=== PATIENT | male | born 1945 | race Caucasian/White ===

== ENCOUNTER 2022-07-19 04:19 | Inpatient (IN) | payer OTHER ==
[2022-07-19] MEDS ORDERED: Pantoprazole 40 MG VIAL ONE (05:16)
[2022-07-19 05:41] LABS: #Basophils 0.1 10x3/uL (0.0-0.2); #Eosinphils 0.2 10x3/uL (0.0-0.5); #Monocytes 1.1 10x3/uL (0.0-1.1); #Neutrophils 9.4 10x3/uL (1.5-8.4); %Eosinophils 1.6 % (0.0-6.0); %Lymphocytes 9.3 % (18.0-47.0); %Neutrophils 78.5 % (40.0-75.0); Hemoglobin 10.7 g/dL (13.5-17.5); Mean Corpuscular HGB CONC 31.8 g/dL (32.0-36.0); Mean Corpuscular Hemoglobin 27.4 pg (27.0-33.0); Mean Corpuscular Volume 85.9 fl (81.2-95.1); Mean Platelet Volume 9.6 fl (7.4-10.4); Platelet Count 419 10x3/uL (150-450); RBC Distribution Width 14.7 % (11.5-14.5); Red Blood Cell (RBC) Count 3.91 10x6/uL (4.32-5.72)
[2022-07-19 05:54] LABS: ALT (SGPT) 19 U/L (8-55); AST (SGOT) 15 U/L (5-34); Albumin 3.8 g/dL (3.4-4.8); Alkaline Phosphatase 142 U/L (40-110); Anion Gap 14 mmol/L (10-20); BUN (Urea Nitrogen) 16 mg/dL (8.4-25.7); Bilirubin, Total 0.4 mg/dL (0.2-1.2); Calc. Creatinine Clearance 0 mL/min (70-130); Calcium 8.7 mg/dL (7.8-10.44); Carbon Dioxide 23 mmol/L (23-31); Chloride 106 mmol/L (98-107); Estimated GFR 81; Globulin 3.2 g/dL (2.4-3.5); Glucose 94 mg/dL (83-110); Potassium 3.8 mmol/L (3.5-5.1); Sodium 139 mmol/L (136-145)
[2022-07-19 05:56] LABS: INR-International Normal Ratio 1.3; PTT 38.7 sec (22.0-33.0); Prothrombin Time 14.2 sec (9.5-12.1)
[2022-07-19 11:46] LABS: SARS-CoV-2 NAA Rapid Test Not Detected (NotDetected)
[2022-07-19 20:28] LABS: Hemoglobin 11.5 g/dL (13.5-17.5)
[2022-07-19] MEDS ORDERED: Meclizine HCl 25 MG TAB ONE (21:57)
[2022-07-19] MEDS ORDERED: Lisinopril 10 MG TAB ONE (21:57)
[2022-07-19] MEDS ORDERED: Amlodipine 5 MG TAB ONE (21:58)
[2022-07-19] MEDS ORDERED: Atorvastatin Calcium 40 MG TAB ONE (22:00)
[2022-07-19] MEDS ORDERED: Methimazole 5 MG TAB PO SCH (22:15)
[2022-07-19] MEDS ORDERED: Ezetimibe 10 MG TAB PO SCH (22:15)
[2022-07-19] MEDS ORDERED: Ferrous Sulfate 325 MG TAB PO SCH (22:15)
[2022-07-20] MEDS ORDERED: Meclizine HCl 25 MG TAB PO PRN (08:13)
[2022-07-20] MEDS ORDERED: Nitroglycerin 0.4 MG TAB (25 Tab Bottle) SL PRN (08:13)
[2022-07-20] MEDS ORDERED: Aspirin Chewable 81 MG TAB ONE (09:15)
[2022-07-20] MEDS ORDERED: Pantoprazole 40 MG VIAL ONE (09:15)
[2022-07-20] MEDS ORDERED: Clopidogrel Bisulfate 75 MG TAB ONE (09:15)
[2022-07-20] MEDS ORDERED: Iopamidol 300 61% 100 ML VIAL FS ONE (09:28)
[2022-07-20] MEDS: Ezetimibe 10 MG TAB PO SCH (09:40)
[2022-07-20] MEDS: Methimazole 5 MG TAB PO SCH (09:40)
[2022-07-20] MEDS: Clopidogrel Bisulfate 75 MG TAB PO SCH (09:40)
[2022-07-20] MEDS: Aspirin 81 mg Enteric Coated Tablet PO SCH (09:40)
[2022-07-20] MEDS: Pantoprazole 40 MG VIAL IVP SCH ×2 (09:41→21:18)
[2022-07-20 09:43] LABS: #Basophils 0.1 10x3/uL (0.0-0.2); #Eosinphils 0.3 10x3/uL (0.0-0.5); #Monocytes 1.2 10x3/uL (0.0-1.1); #Neutrophils 9.5 10x3/uL (1.5-8.4); %Eosinophils 2.3 % (0.0-6.0); %Lymphocytes 7.4 % (18.0-47.0); %Monocytes 9.9 % (0.0-10.0); %Neutrophils 78.9 % (40.0-75.0); Hemoglobin 10.6 g/dL (13.5-17.5); Mean Corpuscular HGB CONC 30.8 g/dL (32.0-36.0); Mean Corpuscular Hemoglobin 27.1 pg (27.0-33.0); Mean Platelet Volume 9.6 fl (7.4-10.4); Platelet Count 486 10x3/uL (150-450); RBC Distribution Width 14.9 % (11.5-14.5); Red Blood Cell (RBC) Count 3.91 10x6/uL (4.32-5.72); White Blood Cell (WBC) Count 12.1 10x3/uL (3.5-10.5)
[2022-07-20 09:50] LABS: INR-International Normal Ratio 1.3; Prothrombin Time 13.5 sec (9.5-12.1)
[2022-07-20 09:51] LABS: Anion Gap 13 mmol/L (10-20); BUN (Urea Nitrogen) 13 mg/dL (8.4-25.7); Calc. Creatinine Clearance 0 mL/min (70-130); Calcium 8.5 mg/dL (7.8-10.44); Carbon Dioxide 23 mmol/L (23-31); Chloride 107 mmol/L (98-107); Estimated GFR 86; Glucose 101 mg/dL (83-110); Potassium 4.1 mmol/L (3.5-5.1); Sodium 139 mmol/L (136-145)
[2022-07-20] MEDS ORDERED: GoLYTELY 4,000 ml Bottle PO SCH (10:00)
[2022-07-20 10:10] VITALS: BMI 20.5
[2022-07-20] MEDS: Sodium Chloride 0.9% 1,000 ML IV SCH (11:52)
[2022-07-20] MEDS ORDERED: Ipratropium Bromide 2.5 ml Neb NEB PRN (13:00)
[2022-07-20] MEDS: Atorvastatin Calcium 40 MG TAB PO SCH (21:18)
[2022-07-21 04:57] LABS: Anion Gap 15 mmol/L (10-20); BUN (Urea Nitrogen) 8 mg/dL (8.4-25.7); Calc. Creatinine Clearance 74 mL/min (70-130); Calcium 8.5 mg/dL (7.8-10.44); Carbon Dioxide 21 mmol/L (23-31); Chloride 109 mmol/L (98-107); Estimated GFR 91; Glucose 99 mg/dL (83-110); Sodium 141 mmol/L (136-145)
[2022-07-21 05:01] LABS: INR-International Normal Ratio 1.3; Prothrombin Time 13.4 sec (9.5-12.1)
[2022-07-21 05:21] LABS: #Basophils 0.1 10x3/uL (0.0-0.2); #Eosinphils 0.4 10x3/uL (0.0-0.5); #Monocytes 1.3 10x3/uL (0.0-1.1); #Neutrophils 12.2 10x3/uL (1.5-8.4); %Basophils 0.9 % (0.0-2.0); %Eosinophils 2.5 % (0.0-6.0); %Lymphocytes 7.7 % (18.0-47.0); %Monocytes 8.7 % (0.0-10.0); %Neutrophils 79.8 % (40.0-75.0); Hemoglobin 10.4 g/dL (13.5-17.5); Mean Corpuscular HGB CONC 31.2 g/dL (32.0-36.0); Mean Corpuscular Hemoglobin 27.4 pg (27.0-33.0); Mean Corpuscular Volume 87.6 fl (81.2-95.1); Mean Platelet Volume 9.9 fl (7.4-10.4); Platelet Count 449 10x3/uL (150-450); RBC Distribution Width 14.9 % (11.5-14.5); White Blood Cell (WBC) Count 15.3 10x3/uL (3.5-10.5)
[2022-07-21] MEDS: Sodium Chloride 0.9% 1,000 ML IV SCH (05:40)
[2022-07-21] MEDS: Metoprolol Tartrate 25 MG TAB PO SCH ×2 (09:54→21:43)
[2022-07-21] MEDS: Pantoprazole 40 MG VIAL IVP SCH ×2 (09:54→21:44)
[2022-07-21] MEDS: Methimazole 5 MG TAB PO SCH (09:54)
[2022-07-21] MEDS: Ezetimibe 10 MG TAB PO SCH (09:54)
[2022-07-21] MEDS: Aspirin 81 mg Enteric Coated Tablet PO SCH (09:54)
[2022-07-21] MEDS: Clopidogrel Bisulfate 75 MG TAB PO SCH (09:55)
[2022-07-21] MEDS ORDERED: GoLYTELY 4,000 ml Bottle PO SCH (13:00)
[2022-07-21] MEDS: Atorvastatin Calcium 40 MG TAB PO SCH (21:43)
[2022-07-22 05:19] LABS: Anion Gap 18 mmol/L (10-20); BUN (Urea Nitrogen) 6 mg/dL (8.4-25.7); Calc. Creatinine Clearance 67 mL/min (70-130); Calcium 9.1 mg/dL (7.8-10.44); Carbon Dioxide 24 mmol/L (23-31); Chloride 106 mmol/L (98-107); Estimated GFR 85; Glucose 92 mg/dL (83-110); Sodium 143 mmol/L (136-145)
[2022-07-22 05:24] LABS: #Basophils 0.1 10x3/uL (0.0-0.2); #Eosinphils 0.4 10x3/uL (0.0-0.5); #Monocytes 1.1 10x3/uL (0.0-1.1); #Neutrophils 9.1 10x3/uL (1.5-8.4); %Eosinophils 3.6 % (0.0-6.0); %Lymphocytes 9.3 % (18.0-47.0); %Monocytes 9.2 % (0.0-10.0); %Neutrophils 76.5 % (40.0-75.0); Hemoglobin 11.2 g/dL (13.5-17.5); Mean Corpuscular Hemoglobin 27.1 pg (27.0-33.0); Mean Corpuscular Volume 87.2 fl (81.2-95.1); Mean Platelet Volume 9.6 fl (7.4-10.4); Platelet Count 504 10x3/uL (150-450); RBC Distribution Width 14.8 % (11.5-14.5); Red Blood Cell (RBC) Count 4.14 10x6/uL (4.32-5.72); White Blood Cell (WBC) Count 11.8 10x3/uL (3.5-10.5)
[2022-07-22] MEDS: Ezetimibe 10 MG TAB PO SCH (06:12)
[2022-07-22] MEDS: Sodium Chloride 0.9% 1,000 ML IV SCH ×2 (06:12→20:57)
[2022-07-22] MEDS: Metoprolol Tartrate 25 MG TAB PO SCH ×2 (06:12→20:57)
[2022-07-22] MEDS: Clopidogrel Bisulfate 75 MG TAB PO SCH (09:13)
[2022-07-22] MEDS: Aspirin 81 mg Enteric Coated Tablet PO SCH (09:13)
[2022-07-22] MEDS: Pantoprazole 40 MG VIAL IVP SCH (09:21)
[2022-07-22] MEDS: Methimazole 5 MG TAB PO SCH (09:21)
[2022-07-22] MEDS ORDERED: PROPOFOL 40 ML ONE (14:53)
[2022-07-22] MEDS ORDERED: PROPOFOL 20 ML ONE (15:41)
[2022-07-22] MEDS: Atorvastatin Calcium 40 MG TAB PO SCH (20:57)
[2022-07-23] MEDS: Methimazole 5 MG TAB PO SCH (09:26)
[2022-07-23] MEDS: Clopidogrel Bisulfate 75 MG TAB PO SCH (09:26)
[2022-07-23] MEDS: Ezetimibe 10 MG TAB PO SCH (09:26)
[2022-07-23] MEDS: Aspirin 81 mg Enteric Coated Tablet PO SCH (09:26)
[2022-07-23] MEDS: Metoprolol Tartrate 25 MG TAB PO SCH (09:26)
[2022-07-23 12:19] VITALS: BP 145/77; TEMP 98
== END 2022-07-23 15:45 | disposition short-term general hospital (02) | DRG 375 ==
LOC: EEVIPCON 04:19 → CSHERS 04:19 → CSHERHOLD 07-20 08:28 → CSHTELE 07-20 09:43
PROVIDERS: ADMIT Family Medicine; ATTEND Family Medicine
PROC: 0DJ08ZZ Inspection of Upper Intestinal Tract, Via Natural or Artificial Opening Endoscopic (ICD-10-PCS; principal; 2022-07-22)
PROC: 0DBP8ZX Excision of Rectum, Via Natural or Artificial Opening Endoscopic, Diagnostic (ICD-10-PCS; 2022-07-22)
DX: D49.0 Neoplasm of unspecified behavior of digestive system (principal); K92.1 Melena; K44.9 Diaphragmatic hernia without obstruction or gangrene; Z20.822 Contact with and (suspected) exposure to COVID-19; I48.0 Paroxysmal atrial fibrillation; D64.9 Anemia, unspecified; I25.10 Atherosclerotic heart disease of native coronary artery without angina pectoris; I69.398 Other sequelae of cerebral infarction; J44.9 Chronic obstructive pulmonary disease, unspecified; K59.09 Other constipation; N18.30 Chronic kidney disease, stage 3 unspecified; E05.90 Thyrotoxicosis, unspecified without thyrotoxic crisis or storm; E78.5 Hyperlipidemia, unspecified; E03.9 Hypothyroidism, unspecified; Z79.899 Other long term (current) drug therapy; Z95.5 Presence of coronary angioplasty implant and graft; Z79.82 Long term (current) use of aspirin; Z85.51 Personal history of malignant neoplasm of bladder; Z79.02 Long term (current) use of antithrombotics/antiplatelets; Z88.8 Allergy status to other drugs, medicaments and biological substances; Z91.014 Allergy to mammalian meats; Z95.0 Presence of cardiac pacemaker; Z79.01 Long term (current) use of anticoagulants; Z90.49 Acquired absence of other specified parts of digestive tract
CPT/HCPCS: 36415; 74177; 80048; 80053; 85025; 85610; 85730; 86850; 86900; 86901; 88305; 88342; 94760; 96374; C9113; J2704; J7050; Q9967; U0002